=== PATIENT | female | born 1970 ===

== ENCOUNTER 2023-01-13 16:13 | Emergency (ER) | payer OTHER ==
[~2023-01-13] VITALS: Ht 162.6 cm; Wt 72.1 kg
[2023-01-13 16:49] VITALS: BP 143/87; PULSE 92; RESP 18; TEMP 98.2; O2SAT 100
[2023-01-13] MEDS ORDERED: CETI10TA81 PO (17:17)
[2023-01-13 17:22] VITALS: BP 135/87; PULSE 88; RESP 18; TEMP 98.2; O2SAT 100
[2023-01-13 17:57] LABS: FLU A ANTIGEN negative (NEGATIVE); FLU B ANTIGEN NEGATIVE (NEGATIVE)
== END 2023-01-13 17:22 | disposition home or self-care (01) ==
LOC: MED 16:13
DX: U07.1 COVID-19 (principal); E11.9 Type 2 diabetes mellitus without complications; Z79.899 Other long term (current) drug therapy; Z88.6 Allergy status to analgesic agent
CPT/HCPCS: 99283

== ENCOUNTER 2023-03-04 16:05 | Emergency (ER) | payer OTHER ==
[~2023-03-04] VITALS: Ht 162.6 cm; Wt 71.7 kg
[~2023-03-04 16:05] MED LIST: CETI10TA81 PO
[2023-03-04 16:08] VITALS: BP 104/82; PULSE 140; RESP 16; TEMP 97; O2SAT 99
[2023-03-04] MEDS ORDERED: BENZ200C4 PO (18:19)
== END 2023-03-04 18:50 | disposition home or self-care (01) ==
LOC: MED 16:05
DX: J06.9 Acute upper respiratory infection, unspecified (principal); Z79.899 Other long term (current) drug therapy
CPT/HCPCS: 71046; 99283